=== PATIENT | female | born 1950 | race Caucasian/White ===

== ENCOUNTER 2016-06-30 05:49 | Emergency (ER) | payer BC ==
[2016-06-30] MEDS ORDERED: KETOROLAC TROMETHAMINE 30 MG/ML VIAL IV ONE (06:15)
[2016-06-30] MEDS ORDERED: MORPHINE SULFATE 10 MG/ML SYRG IV ONE (06:15)
[2016-06-30] MEDS ORDERED: KETOROLAC TROMETHAMINE 30 MG/ML VIAL ONE (06:27)
[2016-06-30] MEDS ORDERED: MORPHINE SULFATE 10 MG/ML SYRG ONE (06:27)
--- NOTE | 2016-06-30 06:29 | ERNOTE ---
Headache ER HPI - Narrative Date of Service: 06/30/16 - General Presenting Symptoms: facial pain Source: patient - Immun/Allergies/Home Medications Immunizations: IMMUNIZATION HX Immunizations Up to Date Yes History of Influenza Vaccine Yes Hx Pneumococcal Vaccination Yes Allergies/Adverse Reactions: Allergies No Known Allergies Allergy (Verified 05/07/12 12:42) Home Medications: HOME MEDICATIONS Atenolol 25 mg PO DAILY 05/07/12 [Last Taken Unknown] Baclofen 10 mg PO DAILY 05/07/12 [Last Taken Unknown] Duloxetine HCl [Cymbalta] 60 mg PO BID 05/07/12 [Last Taken Unknown] Levothyroxine Sodium 50 mcg PO DAILY 05/07/12 [Last Taken Unknown] Omeprazole 10 mg PO DAILY PRN 05/07/12 [Last Taken Unknown] Pregabalin [Lyrica] 100 mg PO DAILY 05/07/12 [Last Taken Unknown] Simvastatin 40 mg PO DAILY 05/07/12 [Last Taken Unknown] Tramadol HCl 50 mg PO PRN 05/07/12 [Last Taken Unknown] HYDROcodone/ACETAMINOPHEN [[place] 5-325] 1 each PO Q4H #16 tablet 03/17/14 [Last Taken Unknown] Naproxen [Naprosyn] 500 mg PO BID #20 tablet 03/17/14 [Last Taken Unknown] Ondansetron [Zofran Odt] 4 mg PO Q6H PRN #20 tab 03/17/14 [Last Taken Unknown] Pregabalin [Lyrica] 150 mg PO TID #60 capsule 06/30/16 [Last Taken Unknown] - Pain Pain Score: 10 - History of Present Illness Narrative: 65 year old that has been having her typical trigeminal nerualgia pain for 4-5 days. The pain has become particularly severe this morning, in fact it is the worse that it has been. The has had multiple types of treatment for similar pain over the last 15 years. The pain is sharp and lancinating that radiates from the left TMG to the left temporal area. Denies the appearance of a rash, fevers, or chills. There is nothing in particular that that aggravates the pain. The last pain medication taken was oxycodone at 0130 hours. Activity at onset: other Timing of Headache: gradual Quality: Present: sharp Severity Maximum: Present: severe Severity-Currently: Present: severe Headache frequency: Present: no recent headache Modifying Factors - (Improves): Reports: other - none Modifying Factors - (Worsens): Reports: other - none Associated Symptoms: Denies: fever/chills Exacerbated by:: Reports: other - sometimes touching the left temporal area scalp. Review of Systems - Review of Systems Constitutional: Present: no symptoms reported EYE: Present: no symptoms reported ENT: Present: no symptoms reported Respiratory: Present: no symptoms reported Cardiology: Present: no symptoms reported Gastrointestinal/Abdominal: Present: no symptoms reported Genitourinary: Present: no symptoms reported Musculoskeletal: Present: no symptoms reported Skin: Present: no symptoms reported Neurological: Present: See HPI Hematologic/Lymphatic: Present: no symptoms reported Psych: Present: no symptoms reported - Patient's Past Medical History Patient History - Medical: Hypothyroidism, Other Patient History - Cardiac/Respiratory: No pertinent hx, Pneumonia Patient History - Cancer: No Hx of Cancer Patient History - Surgical Procedures: Cholecystectomy, Other Patient History - Other: None - Social History Living Situations: home Abuse History: No History of abuse Psych History: Hx of Anxiety, Hx of Depression Smoking Status: Never smoker Alcohol Use: none Drug Use: none - Immunizations Immunizations Up to Date: Yes Hx Pneumococcal Vaccination: Yes History of Influenza Vaccine: Yes Physical Exam - Physical Exam Narrative: Cooperative, but frowning due to intermittent severe pain. General Appearance: Present: mild distress Eye Exam: Normal inspection: bilateral Ears, Nose, Throat: Present: normal ENT inspection Neck: Present: normal inspection Respiratory: Present: no respiratory distress, normal breath sounds Cardiovascular/Chest: Present: regular rate, rhythm Gastrointestinal/Abdominal: Present: normal bowel sounds Back Exam: Present: normal inspection Extremity Exam: Present: normal inspection Neurological Exam: Present: alert, oriented, patient service representative II-XII nml as tested Skin Exam: Present: normal color ED Progress - Vital Signs Patient's Vital Signs:: I have reviewed the patient's vital signs. Vital Signs: Vital Signs 06/30/16 05:54 Temperature 36.3 C L Pulse Rate 69 Respiratory 20 Rate Blood Pressure 160/67 O2 Sat by Pulse 99 Oximetry - Progress/Reassessment Chief Complaint: Headache Progress:: Improved Progress Note-Subjective: 06/30/16 07:11 Modest relief of pain after ketorlac and morphine sulfate IV. 06/30/16 07:31 The pain is tolerable at this time. Departure Clinical Impression: Trigeminal neuralgia of left side of face - Departure Disposition: Home self-care Condition: Good Instructions: Trigeminal Neuralgia Print Language: [place] Referrals: Tasia Garcia MD [Primary Care Provider] - Prescriptions: Pregabalin [Lyrica] 150 mg PO TID #60 capsule
[2016-06-30] MEDS ORDERED: NORMAL SALINE IV ONE (06:45)
[2016-06-30] MEDS ORDERED: FOSPHENYTOIN SODIUM IV ONE (06:45)
[2016-06-30 07:50] VITALS: BP 151/82
== END 2016-06-30 08:00 | disposition home or self-care (01) ==
LOC: ER 05:49
DX: G50.0 Trigeminal neuralgia (principal); E03.9 Hypothyroidism, unspecified; F41.9 Anxiety disorder, unspecified; F32.9 Major depressive disorder, single episode, unspecified

== ENCOUNTER 2016-07-01 08:08 | Emergency (ER) | payer BC ==
[2016-07-01] MEDS ORDERED: HYDROmorphone HCL 1 MG/ML DISP.SYRIN IV ONE ×2 (08:38→09:10)
[2016-07-01] MEDS ORDERED: ONDANSETRON HCL/PF 2 MG/ML VIAL IV ONE (08:38)
--- NOTE | 2016-07-01 08:38 | ERNOTE ---
Headache ER HPI - Narrative Date of Service: 07/01/16 - General Presenting Symptoms: facial pain Time Seen by Provider: 07/01/16 08:36 Source: patient Exam Limitations: no limitations - Immun/Allergies/Home Medications Immunizations: IMMUNIZATION HX Immunizations Up to Date Yes History of Influenza Vaccine Yes Hx Pneumococcal Vaccination Yes Allergies/Adverse Reactions: Allergies No Known Allergies Allergy (Verified 07/01/16 08:23) Home Medications: HOME MEDICATIONS Atenolol 25 mg PO DAILY 05/07/12 [Last Taken Unknown] Baclofen 10 mg PO TID 05/07/12 [Last Taken Unknown] Duloxetine HCl [Cymbalta] 60 mg PO BID 05/07/12 [Last Taken Unknown] Levothyroxine Sodium 50 mcg PO DAILY 05/07/12 [Last Taken Unknown] Omeprazole 20 mg PO BID PRN 05/07/12 [Last Taken Unknown] Pregabalin [Lyrica] 100 mg PO DAILY 05/07/12 [Last Taken Unknown] Simvastatin 40 mg PO DAILY 05/07/12 [Last Taken Unknown] Tramadol HCl 50 mg PO HS PRN 05/07/12 [Last Taken Unknown] Naproxen [Naprosyn] 500 mg PO BID #20 tablet 03/17/14 [Last Taken Unknown] Pregabalin [Lyrica] 200 mg PO HS 07/01/16 [Last Taken Unknown] - History of Present Illness Narrative: severe lightning like left sided facial pain Review of Systems - Review of Systems Constitutional: Present: no symptoms reported EYE: Present: no symptoms reported ENT: Present: no symptoms reported Respiratory: Present: no symptoms reported Cardiology: Present: no symptoms reported Gastrointestinal/Abdominal: Present: no symptoms reported Genitourinary: Present: no symptoms reported - Patient's Past Medical History Patient History - Medical: Hypothyroidism, Other Patient History - Cardiac/Respiratory: No pertinent hx, Pneumonia Patient History - Cancer: No Hx of Cancer Patient History - Surgical Procedures: Cholecystectomy, Other Patient History - Other: None - Social History Living Situations: home Abuse History: No History of abuse Psych History: Hx of Anxiety, Hx of Depression Alcohol Use: none Drug Use: none - Immunizations Immunizations Up to Date: Yes Hx Pneumococcal Vaccination: Yes History of Influenza Vaccine: Yes Physical Exam - Physical Exam General Appearance: Present: mild distress - secondary to left facial erik ED Progress - Vital Signs Vital Signs: Vital Signs 07/01/16 08:18 Pulse Rate 69 Blood Pressure 149/75 O2 Sat by Pulse 99 Oximetry - Progress/Reassessment Chief Complaint: Headache Departure Clinical Impression: Trigeminal neuralgia of left side of face - Departure Disposition: Home self-care Condition: Good Instructions: Trigeminal Neuralgia Additional Instructions: Please go see your neurologist tomorrow. Referrals: Tasia Garcia MD [Primary Care Provider] -
[2016-07-01] MEDS ORDERED: HYDROmorphone HCL 1 MG/ML DISP.SYRIN ONE ×2 (08:52→09:32)
[2016-07-01] MEDS ORDERED: ONDANSETRON HCL/PF 2 MG/ML VIAL ONE (08:52)
[2016-07-01 11:32] VITALS: BP 111/78
== END 2016-07-01 10:30 | disposition home or self-care (01) ==
LOC: ER 08:08
DX: G50.0 Trigeminal neuralgia (principal); E03.9 Hypothyroidism, unspecified; F41.9 Anxiety disorder, unspecified; F32.9 Major depressive disorder, single episode, unspecified

== ENCOUNTER 2017-04-06 14:53 | Emergency (ER) | payer MEDICARE, OTHER ==
--- NOTE | 2017-04-06 16:29 | ERNOTE ---
Trauma/Assault HPI - Narrative Date of Service: 04/06/17 - General Stated Complaint: FALL-FACIAL INJURY/HEADACH Time Seen by Provider: 04/06/17 16:06 Source: patient Exam Limitations: no limitations - Immun/Allergies/Home Medications Immunizations: IMMUNIZATION HX Immunizations Up to Date Yes History of Influenza Vaccine Yes Hx Pneumococcal Vaccination No Allergies/Adverse Reactions: Allergies No Known Allergies Allergy (Verified 04/06/17 15:08) Home Medications: HOME MEDICATIONS Atenolol 25 mg PO DAILY 05/07/12 [Last Taken Unknown] Baclofen 10 mg PO TID 05/07/12 [Last Taken Unknown] Duloxetine HCl [Cymbalta] 60 mg PO BID 05/07/12 [Last Taken Unknown] Levothyroxine Sodium 50 mcg PO DAILY 05/07/12 [Last Taken Unknown] Omeprazole 20 mg PO BID 05/07/12 [Last Taken Unknown] Pregabalin [Lyrica] 100 mg PO DAILY 05/07/12 [Last Taken Unknown] Simvastatin 40 mg PO DAILY 05/07/12 [Last Taken Unknown] Tramadol HCl 50 mg PO HS PRN 05/07/12 [Last Taken Unknown] Naproxen [Naprosyn] 500 mg PO BID #20 tablet 03/17/14 [Last Taken Unknown] Pregabalin [Lyrica] 200 mg PO HS 07/01/16 [Last Taken Unknown] - History of Present Illness Narrative: Pt. comes in with c/o R face pain, neck pain and headache after fall at [facility]. Pt. was told to come to the ER by the manager dialysis at [facility]. Pt. also states that she had some nausea but that has mostly resolved at this time and the bleeding resolved after holding pressure for 30 minutes. Pt. denies any further prehospital treatmne but states taht movement exacerbates the pain. Review of Systems - Review of Systems Constitutional: Present: no symptoms reported. Absent: fever, chills, weakness , fatigue, malaise EYE: Present: eye pain - R ENT: Present: no symptoms reported. Absent: nose pain, nose congestion Respiratory: Present: no symptoms reported. Absent: shortness of breath, cough , wheezing Cardiology: Present: no symptoms reported. Absent: chest pain, palpitations, edema Gastrointestinal/Abdominal: Present: nausea. Absent: vomiting, diarrhea Genitourinary: Present: no symptoms reported Musculoskeletal: Present: neck pain Skin: Present: other - laceration R cheek Neurological: Present: headache. Absent: dizziness/light-headedness, numbness, tingling All Other Systems: All systems neg except as marked - Patient's Past Medical History Patient History - Medical: Arthritis, GERD, Hypothyroidism Patient History - Cardiac/Respiratory: Pneumonia Patient History - Cancer: No Hx of Cancer Patient History - Surgical Procedures: Cholecystectomy, Other Patient History - Other: None LMP (females 10-50): Menopausal - Social History Living Situations: home Abuse History: No History of abuse Psych History: Hx of Anxiety, Hx of Depression - Immunizations Immunizations Up to Date: Yes Hx Pneumococcal Vaccination: No History of Influenza Vaccine: Yes Physical Exam - Physical Exam General Appearance: Present: wd/wn, alert, no apparent distress Head Exam: Present: contusions - R cheek, ecchymosis - R orbit, raccoon eyes - R , tenderness - forehead and R cheek Eye Exam: PERRL: bilateral, EOMI: bilateral, Eyelid inflammation: right Ears, Nose, Throat: Present: normal ENT inspection, normal pharynx Neck: Present: limited range of motion - rotation and flexion, tender posterior midline - C2-C3. Absent: lymphadenopathy (R), lymphadenopathy (L) Respiratory: Present: no respiratory distress, normal breath sounds, no accessory muscle use, chest nontender, lungs clear Cardiovascular/Chest: Present: regular rate, rhythm, no murmur, normal peripheral pulses Back Exam: Present: normal inspection, normal range of motion, no CVA tenderness , no vertebral tenderness Extremity Exam: Present: normal inspection, non-tender, normal range of motion, no edema Neurological Exam: Present: alert, oriented, normal mood/affect, no motor/ sensory deficits Skin Exam: Present: other - abrasions x 2 3cm x 0.2cm and 0.3cm respectively superficial no closure needed. - C-Spine cleared by: Neg C-spine CT & exam ED Progress - Vital Signs Patient's Vital Signs:: I have reviewed the patient's vital signs. Vital Signs: Vital Signs 04/06/17 15:00 Temperature 36.6 C Pulse Rate 62 Respiratory 15 Rate Blood Pressure 155/98 O2 Sat by Pulse 99 Oximetry - CT/Ultrasound CT/Ultrasound Narrative: CT head, neck, and cervical negative for any acute abnormality. - Progress/Reassessment Chief Complaint: Fall Departure Clinical Impression: Facial abrasion Qualifiers: Encounter type: initial encounter Qualified Code(s): S00.81XA - Abrasion of other part of head, initial encounter Facial contusion Qualifiers: Encounter type: initial encounter Qualified Code(s): S00.83XA - Contusion of other part of head, initial encounter - Departure Disposition: Home self-care Condition: Good Instructions: Contusion, [id number], Abrasion, [id number] Additional Instructions: Please follow up with primary provider in 1-2 days. May take Tylenol 1000mg every 6 hours for pain. Please continue applying bacitracin after washing wound then apply clean dressing. Referrals: Tasia Garcia MD [Primary Care Provider] - Critical Care Time - Critical Care Critical Time Spent:: No Total time (mins) Spent:: 0
[2017-04-06] MEDS ORDERED: KETOROLAC TROMETHAMINE 30 MG/ML VIAL IM ONE (17:42)
[2017-04-06] MEDS ORDERED: diphenhydrAMINE HCL 50 MG/ML VIAL IM ONE (17:42)
[2017-04-06] MEDS ORDERED: METOCLOPRAMIDE HCL 5 MG/ML VIAL IM ONE (17:42)
[2017-04-06] MEDS ORDERED: diphenhydrAMINE HCL 50 MG/ML VIAL ONE (17:50)
[2017-04-06] MEDS ORDERED: KETOROLAC TROMETHAMINE 30 MG/ML VIAL ONE (17:50)
[2017-04-06] MEDS ORDERED: METOCLOPRAMIDE HCL 5 MG/ML VIAL ONE (17:51)
[2017-04-06 17:59] VITALS: BP 149/68
== END 2017-04-06 18:27 | disposition home or self-care (01) ==
LOC: ER 14:53
DX: S00.81XA Abrasion of other part of head, initial encounter (principal); S00.83XA Contusion of other part of head, initial encounter; W19.XXXA Unspecified fall, initial encounter; Y92.512 Supermarket, store or market as the place of occurrence of the external cause; E03.9 Hypothyroidism, unspecified